=== PATIENT | female | born 1935 | race Caucasian/White ===

== ENCOUNTER 2022-10-15 09:36 | Emergency (ER) | payer OTHER, BC ==
[~2022-10-15] VITALS: Ht 160 cm; Wt 52.2 kg
--- NOTE | 2022-10-15 09:40 | NUR ---
PT RECEIVED, CARE ASSUMED. PT A/OX4. PT BIB EMS FROM HOME FOR EVALAUTION OF COUGH, CONGESTIONS X3 DAYS. CONNECTED TO TELE MONITOR: [facility]. JORGE LUNGS WITH RONCHI, RESP EVEN, UNLABORED. AWAITING TO BE SEEN BY
[2022-10-15 09:45] VITALS: BP 134/85
[2022-10-15] MEDS ORDERED: ALBUTEROL SULFATE/IPRATROPIU 3 ML SOL IH ONE (10:20)
[2022-10-15 10:21] LABS: BASOPHILS % (AUTO) 0.6 % (0.0-2.0); EOSINOPHILS # (AUTO) 0.1 K/uL (0-0.4); EOSINOPHILS % (AUTO) 1.2 % (0.0-4.0); HEMOGLOBIN 14.1 g/dL (12.0-16.0); LYMPHOCYTES # (AUTO) 1.4 K/uL (2.5-16.5); LYMPHOCYTES % (AUTO) 18.3 % (20.5-51.1); MEAN CORPUSCULAR HEMOGLOBIN 29 pg (27-31); MEAN CORPUSCULAR HGB CONC 33 g/dL (33-37); MEAN CORPUSCULAR VOLUME 90.1 fL (80-94); MONOCYTES # (AUTO) 1.3 K/uL (0.8-1.0); MONOCYTES % (AUTO) 17.1 % (1.7-9.3); NEUTROPHILS # (AUTO) 4.8 K/uL (1.8-7.7); NEUTROPHILS % (AUTO) 62.8 % (42.2-75.2); PLATELET COUNT (AUTO) 253 K/uL (140-450); RED BLOOD CELL COUNT(AUTO) 4.78 MIL/uL (4.20-5.40); RED CELL DISTRIBUTION WIDTH 13.1 % (11.6-13.7); WHITE BLOOD COUNT (AUTO) 7.7 K/uL (4.8-10.8)
[2022-10-15 10:42] LABS: ALBUMIN 3.2 g/dL (3.4-5.0); ANION GAP 11.9 (8-16); ASPARTATE AMINOTRANSFERASE 19 U/L (15-37); CHLORIDE 104 mmol/L (98-107); CREATININE 0.9 mg/dL (0.6-1.3); GLUCOSE 102 mg/dL (74-106); POTASSIUM 3.9 mmol/L (3.5-5.1); SODIUM SERUM 140 mmol/L (136-145); TOTAL BILIRUBIN 0.3 mg/dL (0.0-1.0); UREA NITROGEN, BLOOD 14 mg/dL (7-18)
[2022-10-15] MEDS ORDERED: ALBU0.0912 INH (12:10)
[2022-10-15] MEDS ORDERED: BENZ200C4 PO (12:10)
[2022-10-15 12:34] VITALS: BP 129/78
--- NOTE | 2022-10-15 12:35 | NUR ---
Patient discharged with v/s stable. Written and verbal after care instructions given and explained. Patient verbalized understanding. Wheel Chair Assisted with to car. All questions addressed prior to discharge. Advised to follow up with PMD. TAYLOR TO VICE PRESIDENT OF DEVELOPMENT
== END 2022-10-15 12:24 | disposition home or self-care (01) ==
LOC: MED 09:36
DX: J06.9 Acute upper respiratory infection, unspecified (principal); Z20.822 Contact with and (suspected) exposure to COVID-19; Z79.899 Other long term (current) drug therapy; Z90.710 Acquired absence of both cervix and uterus
CPT/HCPCS: 36415; 71045; 80053; 85025; 93005; 94640; 99285